=== PATIENT | female | born 1980 | race African-American/Black ===

== ENCOUNTER 2016-12-13 11:18 | Emergency (ER) | payer OTHER ==
[2016-12-13 11:22] VITALS: BMI 24.3
--- NOTE | 2016-12-13 11:33 | PDOC ---
History of Present Illness - General Chief Complaint: Pain, Acute Stated Complaint: RT SIDE PAIN Time Seen by Provider: 12/13/16 11:33 History Source: Patient - History of Present Illness Initial Comments: 12/13/16 12:01 CC: 3 day h/o of hematuria, 1 day h/o of flank pain Patient is a 36 y.o. female with a PMH of Asthma (last Albuterol use in June) who presents c/o small streaks of bright red blood in her urine with no dysuria or increased urgency or frequency. Patient does note she woke up this morning and had cramping back pain that radiates to her inguinal area. Patient denies any fevers, chills, nausea, vomiting or diarrhea. Of note, patient recounts a history of rough sexual intercourse with her this week with painful penile/vaginal friction. PMD: none, previously followed with Dr. Og in [facility] Social: 1/2 cigarettes daily, 3-4 drinks monthly, marijuana daily, no cocaine, no heroin Surgical: Tubal Ligation Past History - Past Medical History Allergies/Adverse Reactions: Allergies Allergy/AdvReac Type Severity Reaction Status Date / Time No Known Allergies Allergy Verified 01/02/14 20:14 Home Medications: Ambulatory Orders NK [No Known Home Medication] 12/13/16 Asthma: Yes - Reproductive History (#): 4 Para: 3 Therapeutic (s) & number: No Tubal Ligation: Yes (02/22/2013) Spontaneous : 0 - Immunization History Immunization Up to Date: Yes - Suicide/Smoking/Psychosocial Hx Smoking Status: No Smoking History: Current every day smoker Number of Cigarettes Smoked Daily: 5 Information on smoking cessation initiated: Yes 'Breaking Loose' booklet given: 12/13/16 Hx Alcohol Use: Yes (occasional) Drug/Substance Use Hx: No Substance Use Type: None Review of Systems - Review of Systems Constitutional: No: Chills, Fever *Physical Exam - Vital Signs Last Vital Signs Temp Pulse Resp BP Pulse Ox 98.2 F 88 18 127/79 99 12/13/16 11:20 12/13/16 11:20 12/13/16 11:20 12/13/16 11:20 12/13/16 11:20 - Physical Exam General Appearance: Yes: Nourished, Appropriately Dressed HEENT: positive: EOMI, TAY Neck: positive: Trachea midline, Supple Respiratory/Chest: positive: Lungs Clear, Normal Breath Sounds Cardiovascular: positive: Regular Rhythm, Regular Rate, S1, S2 Female Pelvic Exam: positive: normal external exam, cervical os closed. negative: discharge, lesions, vaginal bleeding Gastrointestinal/Abdominal: positive: Normal Bowel Sounds, Soft Musculoskeletal: negative: CVA Tenderness (R), CVA Tenderness (L) Extremity: positive: Normal Capillary Refill, Normal Inspection Neurologic: positive: money manager II-XII NML intact, Fully Oriented, Alert ED Treatment Course - LABORATORY CBC & Chemistry Diagram: 12/13/16 12:45 12/13/16 12:45 Medical Decision Making - Medical Decision Making 12/13/16 15:00 12/13/16 12:54 Patient is a 33 female who presents with c/o hematuria and flank pain that radiates to her groin. Initial DDx includes nephrolithiasis vs UTI vs. ovarian torsion (less likely) vs. appendicitis (less likely). PLAN: 1. UA 2. CBC, CMP 3. 1 L IV NS 4. CT pending Urine Preg 12/13/16 12:58 UA shows blood however, CT abdomen shows no nephrolithiasis, normal appendix, normal liver. Pelvic exam shows no blood in vaginal vault, no lacerations, no erythema, closed cervical os. Patient symptomatically improved with pain control and IV fluids. Possible ovarian/uterine pathology, however patient declined transvaginal ultrasound at this time. Patient counseled to keep pre- existing appointment Dr. Weinberg (OBGYN) on Thursday (12/15) as well as f/u with her PCP in the next 7 days. *DC/Admit/Observation/Transfer Diagnosis at time of Disposition: Flank pain - Discharge Dispostion Disposition: HOME Condition at time of disposition: Good Admit: No - Patient Instructions Additional Instructions: Please keep your previously scheduled appointment with Dr. Escamilla on Thursday (). In addition please follow up with your PCP in the next 7 days. Please return to the ED for any worsening or concerning symptoms. Print Language: ICELANDIC
[2016-12-13] MEDS ORDERED: SODIUM CHLORIDE 0.9% 1000 ML INFUS.BAG IV ONE (12:16)
--- NOTE | 2016-12-13 12:18 | PDOC ---
Attending Attestation - Resident Resident Name: Martha Romero - ED Attending Attestation I have performed the following: I have examined & evaluated the patient, The case was reviewed & discussed with the resident, I agree w/resident's findings & plan, Exceptions are as noted - HPI HPI: 12/13/16 12:10 36yo F hx asthma p/w hematuria since yesterday and R sided flank pain since this morning. Pain radiates to her R groin from the flank. Pt noted streak of blood in her urine yesterday. Also reports rough intercourse with her a few days ago and feels this may be contributing to the bleeding. LMP 11/25. Denies fevers, chills, N/V/D, CP, SOB, weakness or numbness. No hx renal colic. - Physicial Exam PE: 12/13/16 18:40 GENERAL: Awake, alert, and fully oriented, in no acute distress HEAD: No signs of trauma EYES: PERRLA, EOMI, sclera anicteric, conjunctiva clear ENT: Auricles normal inspection, hearing grossly normal, nares patent, oropharynx clear without exudates. Moist mucosa NECK: Normal ROM, supple, no lymphadenopathy, JVD, or masses LUNGS: Breath sounds equal, clear to auscultation bilaterally. No wheezes, and no crackles HEART: Regular rate and rhythm, normal S1 and S2, no murmurs, rubs or gallops ABDOMEN: Soft, no tenderness to deep palpation, normoactive bowel sounds. No guarding, no rebound. No masses. No CVAT EXTREMITIES: Normal range of motion, no edema. No clubbing or cyanosis. No cords, erythema, or tenderness BACK: No midline spinal tenderness in cervical/thoracic/lumbar region NEUROLOGICAL: Normal speech, cranial nerves intact, negative pronator drift, 5/ 5 strength in all 4 extremities, normal sensation to light touch in all 4 extremities, normal cerebellar exam, normal gait, normal reflexes and tone SKIN: Warm, Dry, normal turgor, no rashes or lesions noted. - Medical Decision Making 12/13/16 15:40 36yo F p/w hematuria yesterday and R flank pain radiating to the groin since this morning that she currently rates at a 2/10. Vitals unremarkable. Pt has no tenderness on exam. [employer] SUPERVISOR exam but Dr. Nick with no blood in vaginal vault and no signs of trauma or tears. Differential includes but is not limited to renal colic vs UTI vs appy vs ovarian cyst. -labs -UPT -UA -if blood + on UA, CTAP non con -consider TVUS 12/13/16 16:42 UA+ for blood, no infx. CTAP negative for stone, appendix normal in appearance. Pt may have fibroids on CTAP which may be causing DUB that could look like hematuria. On re-eval, pt denies current symptoms. I offered the patient a TVUS to evaluate for ovarian/uterine pathology but she declines as she feels well. SHe states she will f/u with Dr. Weinberg on Thursday. I advised her to return to us immediately if her pain returns or she has any new, persistent or concerning symptoms. She expressed understanding. I discussed the physical exam findings, ancillary test results and final diagnoses with the patient. I answered all of the patient's questions. The patient was satisfied with the care received and felt comfortable with the discharge plan and treatment plan. The patient will call their primary care physician within 24 hours to arrange follow-up and will return to the Emergency Department with any new, persistent or worsening symptoms.
[2016-12-13 12:54] LABS: BASOPHIL 0.7 % (0-2.0); EOSINOPHIL 1.3 % (0-4.5); MCH 30.6 pg (25.7-33.7); MCHC 32.8 g/dl (32.0-36.0); MEAN CELL VOLUME 93.3 fl (80-96); NEUTROPHILS 69.4 % (42.8-82.8); PLATELET COUNT 140 K/MM3 (134-434); RDW 13.3 % (11.6-15.6); WHITE BLOOD COUNT 7.8 K/mm3 (4.0-10.0)
[2016-12-13 13:09] LABS: URINE APPEARANCE CLEAR; URINE BILIRUBIN NEGATIVE (NEGATIVE); URINE BLOOD 2+ (NEGATIVE); URINE COLOR LTYELLOW; URINE GLUCOSE (UA) NEGATIVE (NEGATIVE); URINE KETONE NEGATIVE (NEGATIVE); URINE NITRITE NEGATIVE (NEGATIVE); URINE PROTEIN NEGATIVE (NEGATIVE); URINE UROBILINOGEN NEGATIVE mg/dL (0.2-1.0)
[2016-12-13 13:18] LABS: URINE BACTERIA RARE /hpf (NONE SEEN); URINE MUCUS RARE; URINE RBC 80 /hpf (0-3); URINE WBC <1 /hpf (3-5)
[2016-12-13 13:27] LABS: ALBUMIN 3.6 g/dl (3.4-5.0); ALK PHOS 63 U/L (45-117); ANION GAP 5 (8-16); BILIRUBIN,TOTAL 0.5 mg/dL (0.2-1.0); CALCIUM 8.3 mg/dL (8.5-10.1); CO2 27 mmol/L (21-32); CREATININE 0.7 mg/dL (0.55-1.02); GLUCOSE,RANDOM 67 mg/dL (74-106); SGOT/AST 10 U/L (15-37); SGPT/ALT 20 U/L (12-78); TOT PROT 7.2 g/dl (6.4-8.2)
[2016-12-13 16:27] VITALS: BP 120/72; PULSE 75; TEMP 98
[2016-12-13 17:02] LABS: URINE LEUK ESTERASE Negative (NEGATIVE)
== END 2016-12-13 16:26 | disposition home or self-care (01) ==
LOC: JER 11:18
PROC: 3E0337Z Introduction of Electrolytic and Water Balance Substance into Peripheral Vein, Percutaneous Approach (ICD-10-PCS; principal; 2016-12-13)
DX: R10.9 Unspecified abdominal pain (principal); J45.909 Unspecified asthma, uncomplicated; F17.210 Nicotine dependence, cigarettes, uncomplicated
CPT/HCPCS: 36415; 74176-TC; 80053; 81003; 81015; 84703; 85025; 99282-25